=== PATIENT | female | born 1955 | race Caucasian/White ===

== ENCOUNTER → 2016-10-13 | Outpatient (CLI) | payer OTHER | END | disposition home or self-care (01) | LOC: CFH 12:13 | PROVIDERS: ATTEND Nurse Practitioner Primary Care | DX: Z12.31 Encounter for screening mammogram for malignant neoplasm of breast (principal); Z13.820 Encounter for screening for osteoporosis; M85.89 Other specified disorders of bone density and structure, multiple sites | CPT/HCPCS: 77080; G0202 ==

== ENCOUNTER → 2017-07-13 | Outpatient (CLI) | payer OTHER ==
[~2017-07-13] MED LIST: OMNIPAQUE 350 MG/ML, 100ML BOTTLE ONE
== END ==
LOC: CFH 13:43
PROVIDERS: ATTEND Family Medicine
DX: K76.89 Other specified diseases of liver (principal); M47.896 Other spondylosis, lumbar region; Z85.038 Personal history of other malignant neoplasm of large intestine
CPT/HCPCS: 74177; Q9967

== ENCOUNTER → 2018-03-04 | Outpatient (CLI) | payer OTHER | END | disposition home or self-care (01) | LOC: CFH 14:20 | PROVIDERS: ATTEND Family Medicine | DX: Z12.31 Encounter for screening mammogram for malignant neoplasm of breast (principal); Z80.3 Family history of malignant neoplasm of breast | CPT/HCPCS: 77067 ==

== ENCOUNTER → 2018-08-27 | Outpatient (CLI) | payer OTHER | END | disposition home or self-care (01) | LOC: CFH 09:37 | PROVIDERS: ATTEND Internal Medicine Gastroenterology | DX: C19 Malignant neoplasm of rectosigmoid junction (principal); I27.82 Chronic pulmonary embolism; D18.03 Hemangioma of intra-abdominal structures; J98.4 Other disorders of lung; M47.9 Spondylosis, unspecified; R10.12 Left upper quadrant pain; R94.5 Abnormal results of liver function studies; R97.0 Elevated carcinoembryonic antigen [CEA]; Z90.49 Acquired absence of other specified parts of digestive tract | CPT/HCPCS: 71260; 74177; Q9967 ==

== ENCOUNTER 2019-11-17 12:07 | Outpatient (CLI) | payer OTHER | END 2019-11-17 23:59 | disposition home or self-care (01) | LOC: PETCFH 12:07 | PROVIDERS: ATTEND Internal Medicine Gastroenterology | DX: C19 Malignant neoplasm of rectosigmoid junction (principal); R97.0 Elevated carcinoembryonic antigen [CEA] | CPT/HCPCS: 78815; A9552 ==